=== PATIENT | male | born 1960 | race Hispanic/Latino ===

== ENCOUNTER 2022-09-20 13:41 | Emergency (ER) | payer OTHER ==
--- OUTSIDE RECORDS SUMMARY | 2022-09-20 13:44 | XMS REPORT | Continuity of Care Document ---
:[address] [facility] t Address [address] [place] [address] Care Team Providers Name Role Phone Pcp, Patient Does Not Have A Primary Care Physician [id number] RAMEZ WASHINGTON Attending Clinician Unavailable CLYDE CALDERÓN Attending Clinician Unavailable Clyde Calderón MD Attending Clinician Merly Rivas Attending Clinician MERLY PERSON Attending Clinician Unavailable Doctor Unassigned, [place] Attending Clinician Unavailable SHAGUFTA PHELAN Attending Clinician Unavailable Radha Babcock MD Attending Clinician Laurie Jiménez Attending Clinician LAURIE RAMIREZ Attending Clinician Unavailable RADHA BABCOCK Attending Clinician Unavailable MIGUEL LICONA Attending Clinician Unavailable JUAN WEAVER Attending Clinician Unavailable MCKINLEY DOBSON Attending Clinician Unavailable ABDIRAHMAN HERNANDEZ Attending Clinician Unavailable RAMEZ WASHINGTON Admitting Clinician Unavailable Payers Payer Name Policy Type Policy Number Effective Date Expiration Date S farrah MEDICARE PART A [id number] 2009 \\T\\ B 00:00:00 BRYAN DESOUZA TAZ [id number] 2021 HMO 00:00:00 Problems Condition Condition Condition Status Onset Resolution Last Treating Co mments Source Name Details Category Date Date Treatment Clinician Date Obesity Obesity Disease Active Univers (BMI (BMI 3-19 ity of 30-39.9) 30-39.9) 00:00: [address] Branch Calculus Calculus Disease Active Overview: Un desmond of of 3-04 Formattin ity of gallbladde gallbladde 00:00: g of this [place] r without r without 00 note Medi jacqueline cholecysti cholecysti might be Branch tis tis different without without from the obstructio obstructio original. n n Added automatic ally from request for surgery [id number] Allergies, Adverse Reactions, Alerts Allergy Allergy Status Severity Reaction(s) Onset Inactive Treating Comm ents Source Name Type Date Date Clinician Poison Propensi Active Rash Univers Karissa ty to 5-10 ity of Extract adverse 00:00: [place] reaction 00 Medical s Branch POISON DRUG Active Rash Univers KARISSA INGREDI 5-10 ity of EXTRACT 00:00: [place] 00 Medical Branch Social History Social Habit Start Date Stop Date Quantity Comments Source Exposure to 2022-09-07 2022-09-17 Not sure [facility]-CoV-2 00:00:00 12:48:00 [facility] (event) [place] Alcohol intake 2022-01-23 2022-01-23 Lifetime University of 00:00:00 00:00:00 non-drinker [facility] (finding) [place] Tobacco use and 2020-11-21 2020-11-21 Smokeless tobacco Un iversity of exposure 00:00:00 00:00:00 non-user [facility] Sex Ass[birth year] At [birth year] Universit y of 00:00:00 00:00:00 [facility] Smoking Status Start Date Stop Date Source Never smoked tobacco [facility] Medications Ordered Filled Start Stop Current Ordering Indication Dosage Frequency Signature Comments Components Source Medication Medication Date Date Medication? Clinician (SIG) Name Name iopamidol 2022- No [id number] 84mL 84 mL, U nivers (ISOVUE 09-17-02 Intravenou ity o f 370-500 mL) 20:35: 20:45 s, ONCE, 1 [place] injection 00 :00 dose, On Medica l 84 mL 09/17/22 Branch at 1445, Routine polyethylen Yes [id number] 1{packe Take 1 Univers e glycol 1-02 t} Packet by ity of 3350 00:00: mouth 2 [place] (MIRALAX) 00 (two) Medical 17 gram times Branch powder daily as needed for Constipati on. docusate 0 Yes [id number] 100mg Take 1 Un desmond (COLACE) 1-02 capsule by ity o f 100 mg 00:00: mouth in [place] capsule 00 the Medical morning. Branch triamcinolo 0 2021- No [id number] 40mg Univers ne 5-10 05-10 ity of acetonide 22:15: 21:24 [place] (KENALOG) 00 :00 Medical injection Branch 40 mg triamcinolo 2021- No [id number] 40mg 40 mg, Univers ne 5-10 05-10 Intramuscu ity of acetonide 22:15: 21:24 lar, ONCE, [place] (KENALOG) 00 :00 1 dose, On Medi jacqueline injection Tue Branch 40 mg 01/23/22 at 1715, Routine triamcinolo Yes Apply to Univers ne 5-10 area(s) 2 ity of acetonide 00:00: (two) [place] 0.1 % 00 times Medical ointment daily. Branch hydrOXYzine Yes 25mg Take 1 Univers 25 mg 5-10 tablet by ity of tablet 00:00: mouth [place] 00 every 6 Medical (six) Branch hours as needed for Itching. triamcinolo 2021-0 Yes Apply to Univers ne 5-10 area(s) 2 ity of acetonide 00:00: (two) [place] 0.1 % 00 times Medical ointment daily. Branch hydrOXYzine 2021-0 Yes 25mg Take 1 Univers 25 mg 5-10 tablet by ity of tablet 00:00: mouth [place] 00 every 6 Medical (six) Branch hours as needed for Itching. predniSONE 2021-0 2021- No Take 6 Univers 10 mg 5-10 05-21 tablets by ity of tablet 00:00: 04:59 mouth [place] 00 :00 daily for Medical 2 days, Branch THEN 4 tablets daily for 4 days, THEN 2 tablets daily for 4 days. triamcinolo 2020- Yes Apply to Univers ne 9-20 area(s) 2 ity of acetonide 00:00: (two) [place] 0.1 % cream 00 times Medical daily. Branch cetirizine Yes 10mg Take 1 Univers (ZYRTEC) 10 9-20 tablet by ity of mg tablet 00:00: mouth [place] 00 daily. Medical Branch triamcinolo Yes [id number] Apply to Univers ne 9-20 area(s) 2 ity of acetonide 00:00: (two) [place] 0.1 % cream 00 times Medical daily. Branch cetirizine Yes 10mg Take 1 Univers (ZYRTEC) 10 9-20 tablet by ity of mg tablet 00:00: mouth [place] 00 daily. Medical Branch aspirin 81 Yes 81mg Take 81 mg U nivers mg EC 5-07 by mouth ity of tablet 13:33: daily. [place] [address] Medical Branch aspirin 81 Yes 81mg Take 81 mg U nivers mg EC 5-07 by mouth ity of tablet 13:33: daily. [place] [address] Medical Branch captopriL Yes 12.5mg Take 1 Univ ers 12.5 mg 5-07 tablet by ity of tablet 00:00: mouth 2 [place] 00 (two) Medical times Branch daily. captopriL Yes 12.5mg Take 1 Univ ers 12.5 mg 5-07 tablet by ity of tablet 00:00: mouth 2 [place] 00 (two) Medical times Branch daily. atorvastati 2019-09 Yes Take by Uni vers n 20 mg 2-29 mouth ity of tablet 00:00: every [place] 00 evening. Medical Branch carvediloL 2019-09 Yes 6.25mg 6.25 mg 2 Univers 6.25 mg 2-29 (two) ity of tablet 00:00: times [place] 00 daily with Medical meals. Branch metFORMIN 2019-09 Yes 1000mg Take 1,000 Univers 1,000 mg 2-29 mg by ity of tablet 00:00: mouth 2 [place] 00 (two) Medical times Branch daily with meals. atorvastati 2019-09 Yes Take by Uni vers n 20 mg 2-29 mouth ity of tablet 00:00: every [place] 00 evening. Medical Branch carvediloL 2019-09 Yes 6.25mg 6.25 mg 2 Univers 6.25 mg 2-29 (two) ity of tablet 00:00: times [place] 00 daily with Medical meals. Branch metFORMIN 2019-09 Yes 1000mg Take 1,000 Univers 1,000 mg 2-29 mg by ity of tablet 00:00: mouth 2 [place] 00 (two) Medical times Branch daily with meals. Vital Signs Vital Name Observation Time Observation Value Comments Source Systolic blood 2022-09-17 22:30:18 139 mm[Hg] Univer sity of pressure [facility] Diastolic blood 2022-09-17 22:30:18 82 mm[Hg] Unive rsity of [facility] Heart rate 2022-09-17 22:30:18 70 /min Universi ty of [facility] Respiratory rate 2022-09-17 22:30:18 18 /min Univ ersity of [facility] Oxygen saturation in 2022-09-17 22:30:18 98 /min University of Arterial blood by [place] [facility] Pulse oximetry Branch Body temperature 2022-09-17 18:49:00 37.22 Monisha [facility] [place] [facility] ersity [facility] Body height 2022-09-17 18:49:00 180.3 cm Universi ty of [facility] Body weight 2022-09-17 18:49:00 90.629 kg Universi ty of [facility] Branch BMI 2022-09-17 18:49:00 27.87 kg/m2 Universi ty of [facility] Branch Systolic blood 2022-01-23 20:57:00 171 mm[Hg] Univer sity of [facility] Diastolic blood 2022-01-23 20:57:00 96 mm[Hg] Unive rsity of [facility] Heart rate 2022-01-23 20:57:00 78 /min Universi ty of [facility] Body temperature 2022-01-23 20:57:00 36.94 Monisha [facility] [place] [facility] ersity of [facility] Branch Respiratory rate 2022-01-23 20:57:00 18 /min [facility] [place] [facility] ersity [facility] Body height 2022-01-23 20:57:00 180.3 cm Universi ty of [place] [facility] [place] Body weight 2022-01-23 20:57:00 95.664 kg Universi ty of [facility] BMI 2022-01-23 20:57:00 29.41 kg/m2 Universi ty [facility] Oxygen saturation in 2022-01-23 20:57:00 99 /min University of Arterial blood by [facility] Pulse oximetry Branch Procedures Procedure Date / Time Performed Performing Clinician Sour e EKG-12 LEAD 2022-09-17 22:18:51 Clyde [facility] XR CHEST 2 VW 2022-09-17 20:42:30 Clyde [facility] CT ABDOMEN PELVIS W 2022-09-17 20:38:00 [facility] CERVICAL SPINE WO 2022-09-17 20:34:00 Clyde Calderón [facility] ity [facility] TROPONIN I 2022-09-17 20:08:00 Clyde Calderón [facility] COMP. METABOLIC PANEL 2022-09-17 20:08:00 Clyde Calderón [facility] ([id number]) [facility] CBC WITH DIFF 2022-09-17 20:08:00 Clyde Calderón [facility] N-TERMINAL PRO-BNP 2022-09-17 20:08:00 Clyde Calderón [facility] CONSENT/REFUSAL FOR 2022-09-17 18:43:54 Doctor Unassigned, No Un [facility] DIAGNOSIS AND Name Medical Branch TREATMENT Encounters Start End Encounter Admission Attending Care Care Encounter Source Date/Time Date/Time Type Type Clinicians Facility Department ID 2021-07-16 Outpatient R FELIX [facility] ROC [id number] Univers 04:08:30 RAMEZ [facility] 2022-09-17 2022-09-17 Emergency X KAITLYNN [facility] ERT [id number] Univers 12:50:00 16:31:00 CLYDE [facility] 2022-09-17 2022-09-17 Emergency Kaitlynn [facility] [id number] Univers 12:50:00 16:31:00 Clyde SPRINGER [id number] i ty [facility] [id number] [facility] [id number] [facility] 084 Branch 2022-01-23 2022-01-23 Urgent Green [facility] [id number] Univers 16:00:00 16:48:28 [facility] [id number] it y of [place] [id number] Stefano as ERIC?BLEA [id number] [place] [address] MEDICAL OFFICE [facility] 2022-01-23 2022-01-23 Outpatient Monie PERSON [facility] [id number] Univers 16:00:00 16:48:28 MERLY ity [facility] 2022-01-23 2022-01-23 Outpatient R RAZA [facility] [id number] Univers 16:00:00 16:00:00 MERLY ity [facility] 2022-01-23 2022-01-23 Orders Doctor BALBINA [id number] Univers 00:00:00 00:00:00 Only Unassigned, [place] [id number] ity of [facility] [id number] Stefano as [id number] [address] 2021-08-15 2021-08-15 Outpatient Monie PHELAN [facility] [id number] Univers 08:40:00 08:40:00 SENDIL ity [facility] 2021-06-05 2021-06-05 Urgent SadiqRadha [facility] [id number] Univers 10:04:06 10:24:06 Li Ramirez [facility] [id number] ity of [place] [id number] Stefano as Eric?Blea [id number] [address] Medical Office [facility] 2021-06-05 2021-06-05 Outpatient Monie RAMIREZ [facility] [id number] Univers 10:00:00 10:00:00 LAURIE it o f [facility] 2021-05-09 2021-05-09 Outpatient Monie PHELAN [facility] [id number] Univers 09:00:00 09:00:00 SENDIL ity [facility] 2021-05-09 2021-05-09 Outpatient Monie PHELAN [facility] [id number] Univers 09:00:00 09:00:00 SENDIL ity [facility] 2021-04-25 2021-04-25 Outpatient Monie PHELAN [facility] [id number] Univers [facility] 2021-04-25 Outpatient R TAPAN [facility] [id number] Univers [facility]:00[facility] 2021-04-11 2021-04-11 Outpatient R SADIQ [facility] [id number] Univers 12:20:00 12:20:00 RADHA makenzie [facility] 2021-03-09 2021-03-09 Outpatient R MONAE, [facility] [id number] Univers 10:00:00 10:00:00 WONDIFUL ity o f [facility] 2021-01-27 2021-01-27 Outpatient R MONAE [facility] [id number] Univers 11:15:00 11:15:00 WONDIFUL ity o f [facility] 2021-01-23 2021-01-23 Outpatient R FELIX [facility] [id number] Univers 08:30:00 08:30:00 RAMEZ [facility] 2021-01-20 2021-01-20 Outpatient R TAPAN [facility] [id number] Univers 13:00:00 13:00:00 [facility] 2021-01-16 2021-01-16 Outpatient R FELIX [facility] [id number] Univers 10:45:00 10:45:00 [facility] 2020-12-27 2020-12-27 Outpatient R TAPAN [facility] [id number] Univers 16:00:00 16:00:00 [facility] 2020-12-19 2020-12-19 Outpatient R FELIX [facility] [id number] Univers 10:15:00 10:15:00 [facility] 2020-12-13 2020-12-13 Outpatient R OWEN [facility] [id number] Univers 14:00:00 14:00:00 JUAN [facility] 2020-12-09 2020-12-09 Outpatient R OLYA [facility] [id number] Univers 13:00:00 13:00:00 MCKINLEY rosado o f [facility] 2020-12-01 2020-12-01 Outpatient R FELIX, [facility] [id number] Univers 13:45:00 13:45:00 RAMEZ [facility] 2020-11-29 2020-11-29 Outpatient R [facility] [id number] Univers 16:00:00 16:00:00 [facility] 2020-11-21 2020-11-21 Outpatient R TAPAN, [facility] [id number] Univers 09:00:00 09:00:00 SENDIL [facility] 2020-11-17 2020-11-17 Outpatient R FELIX, [facility] [id number] Univers 11:00:00 11:00:00 RAMEZ [facility] 2020-10-07 2020-10-07 Emergency X [facility] ERT [id number] Univers 11:51:00 11:51:00 [facility] 2020-03-02 2020-03-02 [facility] [id number] Univers 18:15:46 18:15:46 ABDIRAHMAN [facility] Results Test Description Test Time Test Comments Results Result Comments Source CBC WITH DIFF 2022-09-17 20:57:59 Test Item Value Reference Range Interpretation Comme nts WBC (test code = 6690-2) See_Comment [A utomated message] The system which ge nerated this result transmit helio reference range: 4.20 - 1 0.70 10*3/?L. The reference r sigifredo was not used to interpr et this result as normal/abnor mal. RBC (test code = 789-8) See_Comment [Au tomated message] The system which ge nerated this result transmit helio reference range: 4.26 - 5 .52 10*6/?L. The reference r sigifredo was not used to interpr et this result as normal/abnor mal. HGB (test code = 718-7) 12.8 g/dL 12.2-16.4 HCT (test code = 4544-3) 39.6 % 38.4-49.3 MCV (test code = 787-2) 85.2 fL 81.7-95.6 MCH (test code = 785-6) 27.5 pg 26.1-32.7 MCHC (test code = 786-4) 32.3 g/dL 31.2-35.0 RDW-SD (test code = 01516-1) 41.5 fL 38.5-51.6 RDW-CV (test code = 788-0) 13.3 % 12.1-15.4 PLT (test code = 777-3) See_Comment H [Au tomated message] The system which ge nerated this result transmit helio reference range: 150 - 32 8 10*3/?L. The reference range was not used to interpret th is result as normal/abnormal . MPV (test code = 44219-1) 10.4 fL 9.8-13.0 NRBC/100 WBC (test code = See_Comment [ Automated message] The [id number]) system which ge nerated this result transmit helio reference range: 0.0 - 10 .0 /100 WBCs. The reference r sigifredo was not used to interpr et this result as normal/abnor mal. NRBC x10^3 (test code = See_Comment [Au tomated message] The 6083128278) system which ge nerated this result transmit helio reference range: 10*3/?L. The reference range was not u sed to interpret this result as normal/abnormal . GRAN MAT (NEUT) % (test code 59.8 % = 770-8) IMM GRAN % (test code = 0.40 % 3728762076) LYMPH % (test code = 736-9) 27.2 % MONO % (test code = 5905-5) 9.4 % EOS % (test code = 713-8) 2.4 % BASO % (test code = 706-2) 0.8 % GRAN MAT x10^3(ANC) (test 4.94 10*3/uL 1.99-6.95 code = 2006691213) IMM GRAN x10^3 (test code = 0.03 10*3/uL 0.00-0.06 4570427281) LYMPH x10^3 (test code = 2.25 10*3/uL 1.09-3.23 731-0) MONO x10^3 (test code = 0.78 10*3/uL 0.36-1.02 742-7) EOS x10^3 (test code = 0.20 10*3/uL 0.06-0.53 711-2) BASO x10^3 (test code = 0.07 10*3/uL 0.01-0.09 704-7) Lab Interpretation (test Abnormal code = 19654-3) [facility]. METABOLIC PANEL (94032)2022-09-17 20:51:59 Test Item Value Reference Range Interpretation Comments NA (test code = 138 mmol/L 135-145 6338612909) K (test code = 4.6 mmol/L 3.5-5.0 3826842631) CL (test code = 103 mmol/L 98-108 4815007021) CO2 TOTAL (test code = 27 mmol/L 23-31 2919774617) AGAP (test code = 2-16 7509569567) BUN (test code = 21 mg/dL 7-23 9596650838) GLUCOSE (test code = 159 mg/dL 70-110 H 9063312256) CREATININE (test code = 0.64 mg/dL 0.60-1.25 1629556800) TOTAL BILI (test code = 0.6 mg/dL 0.1-1.8 6645396830) CALCIUM (test code = 8.8 mg/dL 8.6-10.6 2300818777) T PROTEIN (test code = 7.1 g/dL 6.3-8.2 4787351975) ALBUMIN (test code = 4.2 g/dL 3.5-5.0 3257164711) ALK PHOS (test code = 67 U/L 34-122 3310838389) ALTv (test code = 14 U/L 5-50 1742-6) AST(SGOT) (test code = 19 U/L 13-40 5034552405) eGFR (test code = mL/min/1.73m2 8337456144) KEVIN (test code = KEVIN) Association of Glomerular Filtration Rate (GFR) and Staging of Kidney Disease* + --+ --+ ------+| GFR (mL/min/1.73 m2) ?| With Kidney Damage ?| ?Without Kidney Damage+ --------+ --------+ +| ?>90 ?| ?Stage one ?| ? Normal ?+ ---+ ---+ -------+| ?60-89 ?| ?Stage two ?| ? Decreased GFR ? + --+ --+ ------+| ?30-59 ?| ?Stage three ?| ? Stage three ? + --+ --+ ------+| ?15-29 ?| ?Stage four ? | ? Stage four ?+ ---+ ---+ -------+| ?<15 (or dialysis) ? ?| ?Stage five ? | ? Stage five ?+ ---+ ---+ -------+ *Each stage assumes the associated GFR level has been in effect for at least three months. ?Stages 1 to 5, with or without kidney disease, indicate chronic kidney disease. Notes: Determination of stages one and two (with eGFR >59mL/min/1.73 m2) requires estimation of kidney damage for at least three months as defined by structural or functional abnormalities of the kidney, manifested by either:Pathological abnormalities or Markers of kidney damage (including abnormalities in the composition of the blood or urine or abnormalities in imaging tests). Lab Interpretation Abnormal (test code = 57290-3) [facility] [id number] 20:51:59 Test Item Value Reference Interpretation Comments Range TROPONIN I (test 0.002 ng/mL See_Comment [Automated code = 1857421064) message] The system which generated this result transmitted reference range : <=0.034. The reference range was not used to interpret this result as normal/abnormal . KEVIN (test code = Reference (Normal) KEVIN) Range (defined by the 99th percentile reference limit): <= 0.034 ng/mL Note: Cardiac troponin begins to rise 3-4 hours after the onset of ischemia. Repeat in 4-6 hours if the sample was drawn within 3-4 hours of the onset of the symptom and found normal. Diagnosis of myocardial injury is made with acute changes in cTn concentrations with at least one serial sample above the 99th percentile upper reference limit (URL), taken together with the patient's clinical presentation. Biotin has been reported to cause a negative bias, interpret results relative to patient's use of biotin. Lab Interpretation Normal (test code = 58085-3) [id number] 20:51:59 Test Item Value Reference Range Interpretation Comments NT-proBNP (test code 315 pg/mL See_Comment H [Autom ated = 4429202579) message] The system which generated this result transmitted reference range : <=125. The reference range was not used to interpret this result as normal/abnormal . KEVIN (test code = KEVIN) Biotin has been reported to cause a negative bias, interpret results relative to patient's use of biotin. Lab Interpretation Abnormal (test code = 21433-7) [facility]"
[2022-09-20] MEDS ORDERED: KETOROLAC 30 MG/ML INJ ONE (14:26)
[2022-09-20] MEDS ORDERED: MORPHINE 4 MG/ML SYR ONE (14:26)
[2022-09-20] MEDS ORDERED: ONDANSETRON 4 MG/2 ML VIAL ONE (14:26)
--- NOTE | 2022-09-20 14:48 | RAD REPORT ---
EXAM DESCRIPTION: CT - Stone Protocol - 09/20/2022 2:32 pm CLINICAL HISTORY: Flank pain. lower back pain, right lower abdominal pain COMPARISON: No comparisons TECHNIQUE: Axial images were obtained without oral or IV contrast. Lack of contrast limits solid org an and vascular assessment. The [id number] spans the entirety of the system partially obscuring uppermost abdomen and lung bases. Coronal reformatted images were obtained and reviewed. All CT scans are performed using dose optimization technique as appropriate and may include automated exposure control or mA/KV adjustment according to patient size. FINDINGS: The lower lung negrete are clear. Cholecystectomy clips. Imaged portions of the liver and spleen show no suspicious findings on non-contrast imaging. The panc reas and adrenal glands are normal. No pathologic lymphadenopathy in the abdomen or pelvis. No urinary tract stones or obstructive uropathy. 5 cm posterior right lateral bladder diverticulum. No bowel obstruction, free air, free fluid or abscess. Normal appendix noted.There is significant sto ol retention throughout the colon. Mild lower lumbar degenerative changes. IMPRESSION: No urinary tract stones or obstructive uropathy. 5 cm bladder diverticulum. Significant stool is retained throughout the colon.
[2022-09-20 14:56] LABS: Absolute Lymphocytes (CBC) 1.9 K/uL (0.7-4.9); Hematocrit 38.8 % (39.6-49.0); Lymphocytes % 18.1 % (15.3-44.8); MCV 83.7 fL (80-100); MPV 8.2 fL (7.6-11.3); RBC Red Blood Cell Count 4.63 M/uL (4.33-5.43)
[2022-09-20 15:16] LABS: Albumin 3.5 g/dL (3.4-5.0); Bilirubin Total 0.7 mg/dL (0.2-1.0); Potassium 3.7 mmol/L (3.5-5.1); Protein, Total 8.1 g/dL (6.4-8.2)
--- NOTE | 2022-09-20 15:59 | EDPHYS ---
Physician Documentation [facility] Name: Chino Cohen Age: 62 yrs Sex: Male : 1960 Arrival Date: 09/20/2022 Time: 13:45 Bed 10 Private MD: ED Physician Riaz Alejo HPI: 09/20 14:12 This 62 yrs old Male presents to ER via Wheelchair with complaints of Back jmm Pain. 14:12 The patient presents with pain that is acute. The symptoms are located in the low back. jmm Onset: The symptoms/episode began/occurred gradually. The pain radiates to the right leg. Associated signs and symptoms: Pertinent positives: abdominal pain. This is a 62-year-old male with history of diabetes mellitus, hypertension, hyperlipidemia the presents emerged department with complaints of lower back pain which radiates into his right lower quadrant of his abdomen and suprapubic region as well as radiating into his right leg. Patient's had similar episodes in the past. Denies any bowel or bladder issues. Denies fever. Denies any recent trauma. Historical: - Allergies: 14:17 No Known Allergies; ll1 - PMHx: 14:17 Diabetes mellitus; Hypertensive disorder; Hypercholesterolemia; ll1 - PSHx: 14:17 defib; Cholecystectomy; ll1 - Immunization history:: Client reports having NOT received the Covid vaccine. - Social history:: Smoking status: Patient denies any tobacco usage or history of. ROS: 14:12 Constitutional: Negative for fever, chills, and weight loss, Cardiovascular: Negative jmm for chest pain, palpitations, and edema, Respiratory: Negative for shortness of breath, cough, wheezing, and pleuritic chest pain. 14:12 Back: Positive for pain with movement. 14:12 MS/extremity: Positive for pain. 14:12 All other systems are negative. Exam: 14:12 Constitutional: This is a well developed, well nourished patient who is awake, alert, jmm and in no acute distress. Head/Face: atraumatic. Eyes: EOMI, no conjunctival erythema appreciated ENT: Moist Mucus Membranes Neck: Trachea midline, Supple Chest/axilla: Normal chest wall appearance and motion. Cardiovascular: Regular rate and rhythm. No edema appreciated Respiratory: Normal respirations, no respiratory distress appreciated Abdomen/GI: Non distended 14:12 Back: pain, that is moderate, of the right low back, ROM is painful, vertebral tenderness, is appreciated at L3, L4 and L5. 14:12 Musculoskeletal/extremity: ROM: intact in all extremities. 14:12 Skin: Appearance: Color: normal in color. 14:12 Neuro: Orientation: appropriate for stated age, Mentation: is normal, Memory: is normal. 14:12 Psych: Behavior/mood is pleasant, cooperative. Vital Signs: 14:14 BP 120 / 74; Pulse 81; Resp 17; Temp 98.9; Pulse Ox 99% ; Weight 90.26 kg; Height 5 ft. ll1 11 in. (180.34 cm); Pain 8/10; 14:14 Body Mass Index 27.75 (90.26 kg, 180.34 cm) ll1 MDM: 14:12 Patient medically screened. [facility] 15:56 Data reviewed: vital signs, nurses notes. Counseling: I had a detailed discussion with javier the patient and/or guardian regarding: the historical points, exam findings, and any diagnostic results supporting the discharge/admit diagnosis, radiology results, the need for outpatient follow up, to return to the emergency department if symptoms worsen or persist or if there are any questions or concerns that arise at home. ED course: Pain is alleviated in the ED. I do not currently suspect cord compression, spinal abscess, cauda equina. CT did reveal some degenerative changes in the lumbar spine. Patient most likely has sciatica. I did discuss CT findings with a bladder diverticulum with the patient along with the need to follow-up with urology. Patient understood agrees plan of care.. 09/20 14:14 Order name: CBC with Diff; Complete Time: 15:11 [facility] 09/20 14:14 Order name: CMP; Complete Time: 15:19 [facility] 09/20 14:14 Order name: CT Stone Protocol; Complete Time: 14:50 [facility] 09/20 14:14 Order name: Lipase; Complete Time: 15:19 [facility] 09/20 14:14 Order name: IV Saline Lock; Complete Time: 14:53 [facility] 09/20 14:14 Order name: Labs collected and sent; Complete Time: 14:53 [facility] Administered Medications: 14:53 Drug: morphine 4 mg Route: IVP; Infused Over: 4 mins; Site: right antecubital; ap3 15:37 Follow up: Response: No adverse reaction ap3 14:53 Drug: Zofran (Ondansetron) 4 mg Route: IVP; Site: right antecubital; ap3 15:37 Follow up: Response: No adverse reaction ap3 14:53 Drug: Ketorolac 15 mg Route: IVP; Site: right antecubital; ap3 15:37 Follow up: Response: No adverse reaction ap3 Disposition: 16:40 Co-signature as Attending Physician, Riaz Alejo DO I was immediately available on-site ms3 in the Emergency Department for consultation in the care of the patient. Disposition Summary: 09/20/22 15:58 Discharge Ordered Location: Home [facility] Condition: Stable [facility] Diagnosis - Lumbago with sciatica, right side jmm - Diverticulum of bladder [facility] Followup: [facility] - With: Umberto Cabrera MD - When: 2 - 3 days - Reason: Recheck today's complaints, Continuance of care, Re-evaluation by your physician Followup: [facility] - With: Darnell Cervantes MD - When: 2 - 3 days - Reason: Recheck today's complaints, Continuance of care, Re-evaluation by your physician Discharge Instructions: - Discharge Summary Sheet [facility] - Sciatica Rehab-SportsMed [facility] Forms: - Medication Reconciliation Form [facility] - Thank You Letter [facility] - Antibiotic Education [facility] - Prescription Opioid Use [facility] Prescriptions: - Pepcid 20 mg Oral Tablet - take 1 tablet by ORAL route every 12 hours for 10 days; 20 tablet; Refills: 0, [facility] Product Selection Permitted - Zanaflex 4 mg Oral Tablet - take 1 tablet by ORAL route every 8 hours As needed; 20 tablet; Refills: 0, [facility] Product Selection Permitted - Diclofenac Sodium 75 mg Oral Tablet Sustained Release - take 1 tablet by ORAL route 2 times per day; 30 tablet; Refills: 0, Product [facility] Selection Permitted Signatures: Dispatcher [employer] Mikel Lynch PA PA jmm Prokisch, Amanda RN RN ap3 Kalin Patton RN RN ll1 Riaz Alejo DO DO ms3
--- NOTE | 2022-09-20 15:59 | ER ---
Nurse's Notes [facility] Name: Chino Cohen Age: 62 yrs Sex: Male : 1960 Arrival Date: 09/20/2022 Time: 13:45 Bed 10 Private MD: Diagnosis: Lumbago with sciatica, right side;Diverticulum of bladder Presentation: 09/20 14:02 Chief complaint: Patient states: R lower back pain for 3 months. Has gotten worse, and ll1 entire R side of body hurts now. R leg weak for 2 days. R abdominal "lump" for 2 weeks. Seen at [facility] for the same this past week. States they didn't do anything for him. They just said he's constipated. 14:14 Coronavirus screen: Vaccine status: Patient reports being unvaccinated. Client denies ll1 travel out of the [place] in the last 14 days. At this time, the client does not indicate any symptoms associated with coronavirus-19. Ebola Screen: Patient denies travel to an Ebola-affected area in the 21 days before illness onset. Initial Sepsis Screen: Does the patient meet any 2 criteria? No. Patient's initial sepsis screen is negative. Does the patient have a suspected source of infection? Yes: Bone or joint infection. Risk Assessment: Do you want to hurt yourself or someone else? Patient reports no desire to harm self or others. Onset of symptoms was June 20, 2022. 14:14 Method Of Arrival: Wheelchair ll1 14:14 Acuity: LILIA 3 ll1 Triage Assessment: 14:17 General: Appears uncomfortable, Behavior is cooperative, appropriate for age. Pain: ll1 Complains of pain in back Pain currently is 8 out of 10 on a pain scale. Quality of pain is described as aching. Neuro: No deficits noted. Cardiovascular: No deficits noted. Respiratory: No deficits noted. GI: Reports lower abdominal pain. Musculoskeletal: Circulation, motion, and sensation intact. Capillary refill < 3 seconds, Reports weakness in right leg pain in back. Historical: - Allergies: 14:17 No Known Allergies; ll1 - PMHx: 14:17 Diabetes mellitus; Hypertensive disorder; Hypercholesterolemia; ll1 - PSHx: 14:17 defib; Cholecystectomy; ll1 - Immunization history:: Client reports having NOT received the Covid vaccine. - Social history:: Smoking status: Patient denies any tobacco usage or history of. Screenin:52 [facility] ED Fall Risk Assessment (Adult) History of falling in the last 3 months, ap3 including since admission No falls in past 3 months (0 pts). Abuse screen: Denies threats or abuse. Nutritional screening: No deficits noted. Tuberculosis screening: No symptoms or risk factors identified. Assessment: 14:51 General: Appears uncomfortable, Behavior is calm, cooperative. Pain: Complains of pain ap3 in right leg and back. Neuro: Level of Consciousness is awake, alert, obeys commands, Oriented to person, place, time, situation, Appropriate for age. Cardiovascular: Patient's skin is warm and dry. Respiratory: Airway is patent Respiratory effort is even, unlabored, Respiratory pattern is regular, symmetrical. Musculoskeletal:. 15:36 General: Appears comfortable. ap3 Vital Signs: 14:14 BP 120 / 74; Pulse 81; Resp 17; Temp 98.9; Pulse Ox 99% ; Weight 90.26 kg; Height 5 ft. ll1 11 in. (180.34 cm); Pain 8/10; 14:14 Body Mass Index 27.75 (90.26 kg, 180.34 cm) ll1 ED Course: 13:45 Patient arrived in ED. rg4 13:47 Mikel Kc PA is PHCP. [facility] 13:48 Riaz Alejo DO is Attending Physician. [facility] 14:00 Arm band placed on Patient placed in an exam room, on a stretcher. ll1 14:16 Triage completed. ll1 14:19 Viv Jaime, ALAN is Primary Nurse. ap3 14:34 CT Stone Protocol In Process Unspecified. EDMS 14:51 Inserted saline lock: 20 gauge in right antecubital area, using aseptic technique. ap3 Blood collected. 14:52 Patient has correct armband on for positive identification. Bed in low position. Call ap3 light in reach. Adult w/ patient. Pulse ox on. NIBP on. Door closed. Noise minimized. 15:58 Umberto Cabrera MD is Referral Physician. [facility] 15:58 Darnell Cervantes MD is Referral Physician. [facility] 16:14 No provider procedures requiring assistance completed. IV discontinued, intact, ap3 bleeding controlled, No redness/swelling at site. Pressure dressing applied. Administered Medications: 14:53 Drug: morphine 4 mg Route: IVP; Infused Over: 4 mins; Site: right antecubital; ap3 15:37 Follow up: Response: No adverse reaction ap3 14:53 Drug: Zofran (Ondansetron) 4 mg Route: IVP; Site: right antecubital; ap3 15:37 Follow up: Response: No adverse reaction ap3 14:53 Drug: Ketorolac 15 mg Route: IVP; Site: right antecubital; ap3 15:37 Follow up: Response: No adverse reaction ap3 Medication: 14:52 VIS not applicable for this client. ap3 Outcome: 15:58 Discharge ordered by . javier 16:14 Discharged to home ambulatory, with family. ap3 16:14 Condition: good 16:14 Discharge instructions given to patient, Instructed on discharge instructions, follow up and referral plans. medication usage, Demonstrated understanding of instructions, follow-up care, medications, Prescriptions given X 3. 16:14 Patient left the ED. ap3 Signatures: Dispatcher [employer] EDMS Mikel Kc PA PA jmm Garcia, Rubi rg4 Viv Jaime RN RN ap3 Kalin Patton RN RN ll1 Corrections: (The following items were deleted from the chart) 14:16 14:02 Chief complaint: Patient states: R lower back pain for 3 months. Has gotten ll1 worse. ll1
[2022-09-20 16:47] VITALS: BP 120/74; TEMP 98.9; O2SAT 99
== END 2022-09-20 16:14 | disposition home or self-care (01) ==
LOC: ER 13:41
DX: M54.41 Lumbago with sciatica, right side (principal); N32.3 Diverticulum of bladder; I10 Essential (primary) hypertension
CPT/HCPCS: 85025; 36415; 83690; 80053; 76377; 74176; 96375; 96374; 99284; J2405